=== PATIENT | female | born 1995 | race Hispanic/Latino ===

== ENCOUNTER 2024-06-08 15:04 | Emergency (ER) | payer BC ==
[~2024-06-08] VITALS: Ht 162.6 cm; Wt 68.9 kg
--- NOTE | 2024-06-08 15:37 | ERN ---
ED Note History of Present Illness Stated Complaint: SENT BY SHAILA JENKINS IN ABD Chief Complaint: Abdominal Pain Time Seen by MD: 15:08 Time Seen by Midlevel: 15:11 Dictation: 28 Year old female with no past medical history coming in from PCP's office for an abnormal ultrasound. Patient states she went to the PCP's office for having generalized abdominal pain, states it felt like gas. The doctor's office they return to rule out gallstones so they did ultrasound and the doctor told her she would look like fluid around the uterus. Also patient admits to have take laxatives last night in the had they have helped with the pain. LMP 05/16/2024. Denies any nausea, vomiting, fever. Allergies: Coded Allergies: No Known Drug Allergies (Unverified Allergy, Unknown, 06/08/24) Past Medical History Past Medical History: No Pertinent History Surgical History: None LMP: May 18, 2024 : 0 Review of System Dictation Constitutional: Negative for fever,chills, and weight loss Eyes: Negative for injury, pain,redness, and discharge ENT: Negative for injury,pain or swelling Cardiovascular: Negative for chest pain, palpitations, and edema Respiratory: Negative for shortness of breath, cough, and wheezing, Abdomen/GI: Generalized abdominal pain, no nausea, no vomiting, no diarrhea, and no constipation Back: Negative for injury and pain : Negative for injury, bleeding and discharge MS/Extremity: Negative for injury and deformity Skin: Negative for rash, and discoloration Neuro: Negative for headache, weakness, numbness, tingling, and seizure Psych: Negative for suicide ideation, homicidal ideation, and hallucinations Review of Systems: was completed Initial Vital Sign VS Vital Signs Date Time Temp Pulse Resp B/P (MAP) Pulse Ox O2 Delivery O2 Flow Rate FiO2 06/08/24 15:14 99.0 114 20 116/89 99 Room Air 0 06/08/24 15:30 21 Physical Exam Dictation General: awake, alert, NAD Head/Face: Normocephalic, atraumatic Eyes: PERRL, EOMI, vision at baseline ENT: oral cavity clear, TMs clear, no signs of infection Neck: Trachea midline, supple, no nuchal rigidity Cardiovascular: RRR, normal S1/S2, No MRGs, no JVD Respiratory: CTAB, no respiratory distress, No rales or wheezes Abdomen: Soft, non-tender, non-distended, normal bowel sounds, no guarding or rebound. Skin: Warm, dry, normal turgor, no rash MS/Extremity: Pulses equal, no cyanosis, neurovascular intact, FROM Neuro: COAx4, GCS 15, strength 5/5, CN 2-12 intact, normal cerebellar exam, normal gait, Psych: Normal behavior, mood, and affect normal Results (Laboratory/Radiology) Laboratory/Radiology Laboratory Tests Test 06/08/24 15:20 White Blood Count 8.4 K/uL (4.8-10.8) Red Blood Count 3.83 MIL/uL (4.00-5.50) L Hemoglobin 12.0 g/dL (12.0-16.0) Hematocrit 35.0 % (36-48) L Mean Corpuscular Volume 91.4 fL (79-99) Mean Corpuscular Hemoglobin 31.3 pg (27.0-33.0) Mean Corpuscular Hemoglobin Concent 34.3 g/dL (32.0-36.0) Red Cell Distribution Width 12.7 % (11.0-15.5) Platelet Count 209 K/uL (130-400) Mean Platelet Volume 10.9 fL (7.5-10.5) H Immature Granulocyte % (Auto) 0.4 % (0-1) Neutrophils (%) (Auto) 66.7 % (40.0-77.0) Lymphocytes (%) (Auto) 21.7 % (21.0-51.0) Monocytes (%) (Auto) 10.4 % (3.0-13.0) Eosinophils (%) (Auto) 0.6 % (0.0-8.0) Basophils (%) (Auto) 0.2 % (0.0-5.0) Neutrophils # (Auto) 5.6 K/uL (1.8-7.7) Lymphocytes # (Auto) 1.8 K/uL (1.0-4.8) Monocytes # (Auto) 0.9 K/uL (0.1-1.0) Eosinophils # (Auto) 0.05 K/uL (0.00-0.70) Basophils # (Auto) 0.02 K/uL (0.00-0.20) Absolute Immature Granulocyte (auto 0.03 K/uL (0-1) Nucleated Red Blood Cells 0.0 % (0.0-0.19) Urine HCG, Qualitative NEGATIVE (NEGATIVE) Sodium Level 138 mmol/L (136-145) Potassium Level 3.6 mmol/L (3.5-5.1) Chloride Level 101 mmol/L (101-111) Carbon Dioxide Level 24 mmol/L (21-32) Blood Urea Nitrogen 4 mg/dL (7-18) L Creatinine 0.6 mg/dL (0.5-1.0) Glomerular Filtration Rate Calc 125 mL/min (>90) Random Glucose 94 mg/dL (70-105) Total Calcium 9.0 mg/dL (8.5-10.1) Total Bilirubin 0.6 mg/dL (0.2-1.0) Direct Bilirubin 0.2 mg/dL (0.0-0.3) Aspartate Amino Transf (AST/SGOT) 11 U/L (10-37) Alanine Aminotransferase (ALT/SGPT) 33 U/L (12-78) Alkaline Phosphatase 47 U/L (50-136) L Total Protein 7.3 g/dL (6.0-8.3) Albumin 4.3 g/dL (3.5-5.0) Lipase 35 U/L (16-77) Human Chorionic Gonadotropin, Quant 0 mIU/mL (0-5) Labs Reviewed?: Yes CT Scan Comment: [address] [address] IMAGING REPORT Signed PATIENT: JIMMY ROMERO MR#: [id number] : 1995 SEX: F AGE: 28 LOCATION: [facility] ORDER 153 STATUS: REG ER REPORT#: [id number] SERVICE [id number] REASON: generalized abd pain, abnormal US at the PCP office , fluid around uterus ORDERING PHYSICIAN: AIDEN DUMONT NP PROCEDURE: ABD PEL W - CT ABDOMEN/PELVIS W/CONTRAST CT ABDOMEN WITH CONTRAST. CT PELVIS WITH CONTRAST INDICATION: Right lower abdominal pain TECHNIQUE: Routine transaxial images using 5 mm slice thickness were obtained after the intravenous infusion of 100 mL of Omnipaque 350 without adverse effects. Oral contrast was not administered. Rectal contrast was not administered. Coronal and sagittal reformatted images acquired for interpretation. CT was performed with one or more of the following dose reduction techniques: Automated exposure control, adjustment of the mA and/or kV according to patient size, or use of iterative reconstruction technique. COMPARISON: None FINDINGS: ABDOMEN: Heart size is normal. Visible lung bases are clear. The liver is normal in size and smooth in contour without lesions or biliary duct dilation. The spleen is normal in size without lesions. The gallbladder appears normal. The pancreas appears normal without pancreatic duct dilation. The adrenal glands appear normal. Both kidneys appear unremarkable. Cortical nephrograms are symmetric and normal in appearance bilaterally. No evidence for intra-abdominal free air or organized fluid collection. Small amount of fluid within the right and left upper abdomen. No retrocrural, intraabdominal, or retroperitoneal lymphadenopathy identified. No aortic aneurysmal dilation or dissection identified. PELVIS: No evidence for free air or organized pelvic fluid collection. No significant pelvic adenopathy detected. Visualized small and large bowel loops appear unremarkable. Terminal ileum appears normal. The appendix appears normal. The urinary bladder appears unremarkable. 3.0 cm thick-walled cystic lesion within the right adnexa and hemorrhagic fluid within the pelvis. Thin-walled 1.7 cm left adnexal cyst, likely of ovarian origin. T-shaped intrauterine contraceptive device Visible osseous structures are intact. IMPRESSION: 3.0 cm right adnexal ectopic or ruptured hemorrhagic cyst and associated small-volume hemorrhagic pelvic ascites. Small amount of fluid within the right and left upper abdomen. Correlation with beta-hCG levels is recommended. DICTATED BY: SILVANO LUNA MD DATE: 06/08/241726 ELECTRONICALLY SIGNED BY: SILVANO LUNA MD DATE: 06/08/24 173 ED Course ED Course Orders Procedure Category Date Status Time Cbc With Differential LAB 06/08/24 Complete 15: Basic Metabolic Panel LAB 06/08/24 Complete 15:33 Lipase LAB 06/08/24 Complete 15:33 Hepatic Function Panel LAB 06/08/24 Complete 15:33 Ct Abdomen/Pelvis CT 06/08/24 Resulted W/Contrast 15:33 ,Urine Test LAB 06/08/24 Complete 15:47 Acetaminophen 325 Tab PHA 06/08/24 Complete (Tylenol 325mg Tab 16:35 Iohexol (Omnipaque) PHA 06/08/24 Complete 16:59 Ketorolac PHA 06/08/24 Complete Tromethamine 15mg/Ml 18:00 Hcg,Quantitative LAB 06/08/24 Complete 18:00 Current Medications Medications (Trade) Dose Ordered Sig/Peterson Route PRN Reason Start Time Stop Time Status Last Admin Dose Admin Acetaminophen (TYLenol 325MG TAB) 650 mg ONCE STAT PO 06/08/24 16:35 06/08/24 16:38 DC 06/08/24 17:31 Iohexol (Omnipaque) 35,000 mg STK-MED ONCE IV 06/08/24 16:59 06/08/24 16:59 DC Ketorolac Tromethamine (toRADol) 15 mg ONCE ONCE IV 06/08/24 18:00 06/08/24 18:01 DC 06/08/24 17:52 Vital Signs Date Time Temp Pulse Resp B/P (MAP) Pulse Ox O2 Delivery O2 Flow Rate FiO2 06/08/24 17:54 98.1 99 16 144/ 99 Room Air* 0 21 06/08/24 16:30 98.1 109 16 140/89 99 Room Air* 0 21 06/08/24 15:30 98.2 100 16 159/88 99 Room Air* 0 21 06/08/24 15:14 99.0 114 20 116/89 99 Room Air 0 Medical Decision Making MDM MDM: 28 Year old female with no past medical history coming in from PCP's office for an abnormal ultrasound. Patient states she went to the PCP's office for having generalized abdominal pain, states it felt like gas. The doctor's office they return to rule out gallstones so they did ultrasound and the doctor told her she would look like fluid around the uterus. Also patient admits to have take laxatives last night in the had they have helped with the pain. LMP 05/16/2024. Denies any nausea, vomiting, fever. Lab work unremarkable. HCG quantitative is negative. CT scan shows 3 cm right abdomen is soft ectopic or ruptured hemorrhagic cyst and associated small volume hemorrhagic pelvic ascites. Small amount of fluid was not the right and left upper abdomen. Her hCG is negative there for more than likely this is a ruptured hemorrhagic cyst. Spoke to radiologist to confirm the fluid in the right and upper abdomen, radiologist stated it was a small amount of fluid most likely related to the hemorrhagic cyst rupture. Patient's H and H has been stable, vital signs have been stable. Abdomen is soft and nondistended. Patient will be discharged to go home to follow up with the gynecology outpatient. This case was discussed with the ER MD prior to discharge. Differential diagnosis: Ectopic , acute abdomen, appendicitis, peritonitis Rationale: Tests considered and ordered secondary to shared decision making include: Previous outside records reviewed: Old ER visits. Risk of complication and/or morbidity or mortality of patient management: None Medications-Per medication reconciliation Need for hospitalization: Patient does not meet criteria for hospitalization. Need for emergency major/minor surgery: No There are no social concerns with this patient. Prescription drug management Prescriptions will include symptomatic care Patient's prior external medical records from other ER visits were reviewed by me as indicated. Prior testing and results from previous visits were reviewed. Prior tests were taken into account with medical decision making and resource utilization, independent historian/historians were used to obtain complete medical history. I independently interpreted the test that were performed, results were reviewed by me and considered findings on radiology if ordered. Medical management and examination interpretation discussions were had by me with other qualified healthcare professionals as indicated for the patient's care. DX & DISP Disposition: Discharge Departure Impression: Primary Impression: Hemorrhagic cyst Condition: Stable Additional Instructions: Your CT scan shows adnexal hemorrhagic cyst rupture. Follow up with the OBGYN in 1-2 days return to the hospital if you have any worsening symptoms. Take Tylenol or Motrin [id number] for pain control. Referrals: SELF,REFERRAL (PCP) EDITH JAVIER MD Time of Disposition: 19:07 I have reviewed the case, and I agree with, Diagnosis and Plan AIDEN DUMONT NP Jun 08, 2024 15:37
[2024-06-08 15:51] LABS: BASOPHILS # (AUTO) 0.02 K/uL (0.00-0.20); BASOPHILS % (AUTO) 0.2 % (0.0-5.0); EOSINOPHILS # (AUTO) 0.05 K/uL (0.00-0.70); EOSINOPHILS % (AUTO) 0.6 % (0.0-8.0); IMMATURE GRANULOCYTE ABSOLUTE 0.03 K/uL (0-1); LYMPHOCYTES # (AUTO) 1.8 K/uL (1.0-4.8); LYMPHOCYTES % (AUTO) 21.7 % (21.0-51.0); MEAN CORPUSCULAR HEMOGLOBIN 31.3 pg (27.0-33.0); MEAN CORPUSCULAR HGB CONC 34.3 g/dL (32.0-36.0); MEAN CORPUSCULAR VOLUME 91.4 fL (79-99); MONOCYTES # (AUTO) 0.9 K/uL (0.1-1.0); MONOCYTES % (AUTO) 10.4 % (3.0-13.0); NEUTROPHILS # (AUTO) 5.6 K/uL (1.8-7.7); NEUTROPHILS % (AUTO) 66.7 % (40.0-77.0); PLATELET COUNT (AUTO) 209 K/uL (130-400); RED BLOOD CELL COUNT(AUTO) 3.83 MIL/uL (4.00-5.50); RED CELL DISTRIBUTION WIDTH 12.7 % (11.0-15.5); WHITE BLOOD COUNT (AUTO) 8.4 K/uL (4.8-10.8)
[2024-06-08 15:59] LABS: CREATININE 0.6 mg/dL (0.5-1.0); POTASSIUM 3.6 mmol/L (3.5-5.1)
[2024-06-08 16:03] LABS: ALBUMIN 4.3 g/dL (3.5-5.0); BILIRUBIN,DIRECT 0.2 mg/dL (0.0-0.3); BILIRUBIN,TOTAL 0.6 mg/dL (0.2-1.0); TOTAL PROTEIN, SERUM 7.3 g/dL (6.0-8.3)
[2024-06-08] MEDS ORDERED: IOHEXOL 350 MG/ML 100ML INFUS..BTL IV ONE (16:59)
[2024-06-08] MEDS: acetaMINOPHEN 325 MG TAB PO STA (17:31)
--- NOTE | 2024-06-08 17:37 | HMCIMG ---
CT ABDOMEN WITH CONTRAST. CT PELVIS WITH CONTRAST INDICATION: Right lower abdominal pain TECHNIQUE: Routine transaxial images using 5 mm slice thickness were obtained after the intravenous infusion of 100 mL of Omnipaque 350 without adverse effects. Oral contrast was not administered. Rectal contrast was not administered. Coronal and sagittal reformatted images acquired for interpretation. CT was performed with one or more of the following dose reduction techniques: Automated exposure control, adjustment of the mA and/or kV according to patient size, or use of iterative reconstruction technique. COMPARISON: None FINDINGS: ABDOMEN: Heart size is normal. Visible lung bases are clear. The liver is normal in size and smooth in contour without lesions or biliary duct dilation. The spleen is normal in size without lesions. The gallbladder appears normal. The pancreas appears normal without pancreatic duct dilation. The adrenal glands appear normal. Both kidneys appear unremarkable. Cortical nephrograms are symmetric and normal in appearance bilaterally. No evidence for intra-abdominal free air or organized fluid collection. Small amount of fluid within the right and left upper abdomen. No retrocrural, intraabdominal, or retroperitoneal lymphadenopathy identified. No aortic aneurysmal dilation or dissection identified. PELVIS: No evidence for free air or organized pelvic fluid collection. No significant pelvic adenopathy detected. Visualized small and large bowel loops appear unremarkable. Terminal ileum appears normal. The appendix appears normal. The urinary bladder appears unremarkable. 3.0 cm thick-walled cystic lesion within the right adnexa and hemorrhagic fluid within the pelvis. Thin-walled 1.7 cm left adnexal cyst, likely of ovarian origin. T-shaped intrauterine contraceptive device Visible osseous structures are intact. IMPRESSION: 3.0 cm right adnexal ectopic or ruptured hemorrhagic cyst and associated small-volume hemorrhagic pelvic ascites. Small amount of fluid within the right and left upper abdomen. Correlation with beta-hCG levels is recommended.
[2024-06-08] MEDS: ketOROlac 15MG/ML VIAL (15MG/ML) IV ONE (17:52)
[2024-06-08 19:33] VITALS: BP 120/84; PULSE 110; RESP 18; TEMP 99.4; O2SAT 98
== END 2024-06-08 19:35 | disposition home or self-care (01) ==
LOC: EDH 15:04
DX: O00.80 Other ectopic pregnancy without intrauterine pregnancy (principal); N83.291 Other ovarian cyst, right side; R10.2 Pelvic and perineal pain
CPT/HCPCS: 99284; 74177; 96374; 80076; 80048; 84702; 83690; 85025; 81025; 36415; J1885; Q9967